=== PATIENT | male | born 1990 | race Caucasian/White ===

== ENCOUNTER 2020-11-28 15:25 | Emergency (ER) | payer BC, SELFPAY ==
[2020-11-28 16:06] VITALS: BP 118/80; PULSE 89; RESP 19; TEMP 36.8; O2SAT 98; BMI 24.3
--- NOTE | 2020-11-28 16:07 | XR_ITS ---
PROCEDURE: XR FOOT LT MIN 3V CLINICAL INDICATION: injury COMPARISON: No exams were available for comparison FINDINGS: AP lateral and oblique films show a nondisplaced complex fracture mid shaft proximal phalanx of the great toe. There is mild soft tissue swelling of the great toe. The tarsal bones metatarsals and remaining phalanges all appear intact. The plantar arch is normal. IMPRESSION: Fracture proximal phalanx great toe the fracture does not involve the articular cortex of the MP or IP joint Dictated by: Dr. Satish Love MD 11/29/2020 10:50 Dr. Satish Love MD in [place] 11/29/2020 10:50
[2020-11-28 16:11] VITALS: BP 118/80; PULSE 89; RESP 19; TEMP 36.8; O2SAT 98
--- NOTE | 2020-11-28 16:16 | HMH.EDUTC ---
[facility] [place] Disposition Clinical Impression: Foot fracture, left Qualifiers: Encounter type: initial encounter Fracture type: closed Qualified Code(s): S92.902A - Unspecified fracture of left foot, initial encounter for closed fracture Disposition: Home, Self-Care Condition on Discharge: Good Instructions: Foot Fracture, DI for Foot Fracture Additional Instructions: Rest the extremity, apply ice for 15 minutes as tolerated three or four times per day, Elevate the extremity as tolerated while you are resting. Take ibuprofen for pain. I sent in a prescription to your pharmacy. Follow up with Dr. Mcdowell (podiatry). I put in a referral but you need to call her office and schedule an appointment. Make sure you follow up with podiatry or orthopedics. If this does not heal correctly it will cause you problems for the rest of your life. Follow up with your regular doctor. GO TO THE ER FOR ANY WORSENING SYMPTOMS Prescriptions: Ibuprofen [Ibuprofen 600mg Tablet] 600 mg PO Q6HP PRN #30 tab PRN Reason: Mild Pain Transmission Status: Received by [facility] #[id number] Referrals: PCP,No [Primary Care Provider] - Cleo Cannon DPM [Staff Physician] - Time of Disposition: 17:43 Medical Decision Making - Medical Records Medical records reviewed: No: I reviewed the patient's medical records. - Rickie Inquiry Pt receiving controlled substance: No Vital Signs: 11/28/20 16:06 11/28/20 16:11 Temperature 98.2 F 98.2 F Temperature Source Oral Pulse Rate 89 Pulse Rate [Left] 89 Respiratory Rate 19 19 Blood Pressure 118/80 Blood Pressure [Right Arm] 118/80 Blood Pressure Mean [Right Arm] 92 Blood Pressure Source [Right Arm] Automatic Cuff Blood Pressure Position [Right Arm] Sitting 02 Sat by Pulse Oximetry 98 Oxygen Delivery Method Room Air Orders (Tests/Meds): ORDERS Category Date Time Status XR foot LT min 3V Stat Exams 11/28/20 16:07 Taken - Radiology Data #1 Image(s): Foot/Toes Image Reviewed: Yes I reviewed the patient's radiology image, Yes I have reviewed radiologist's interpretation fractured right great toe [facility] [place] HPI - General Stated complaint: ao 11/27/23 @2000 L foot injury Time Seen by Provider: 11/28/20 16:16 Mode of Arrival: Ambulatory Source of Information: Patient Limitations: No Limitations Description of Symptoms (Recalled from Triage Doc. by RN): Left foot swelling and pain HEENT Symptoms (Recalled from RN notes): No Resp Symptoms (Recalled from RN notes): No Skin Symptoms (Recalled from RN notes): No MS Symptoms (Recalled from RN notes): Yes Functional Status (Recalled from RN notes): wnl - History of Present Illness Provider Complaint: He states that he twisted his left foot back under himself yesterday. Since then he has had left foot pain and swelling. His foot is very swollen. - Related Data Previous Rx's Medication Instructions Recorded Ibuprofen [Ibuprofen 600mg 600 mg PO Q6HP PRN #30 tab 11/28/20 Tablet] Allergies Allergy/AdvReac Type Severity Reaction Status Date / Time No Known Allergies Allergy Verified 11/28/20 16:10 - Worker's Comp Is this a Worker's Comp case?: No Is this an [employer] Worker's Comp?: No Is this a [employer] Worker's Comp?: No [facility] History - Hepatitis A Screen Drug use history?: No High risk sexual behaviors?: No History of sexually transmitted infection?: No Currently employed?: No Childcare worker?: No Do you have indoor plumbing?: Yes Do you have electricity?: Yes Attestation statement:: This patient has been screened for Hepatitis A risk factors. I have reviewed the patient's past medical history: Yes - Social History Smoking Status: Never smoker Alcohol Intake: current Alcohol Intake Frequency:: holidays/special occasions only Occupational Status: other ROS Obtained: Yes All systems reviewed & no additional complaints - Constitutional Constitutional: Denies chills, Denies fever(s)
== END 2020-11-28 17:53 | disposition home or self-care (01) ==
PROVIDERS: Emergency Provider Nurse Practitioner Family
DX: S92.415A Nondisplaced fracture of proximal phalanx of left great toe, initial encounter for closed fracture (principal); X50.1XXA Overexertion from prolonged static or awkward postures, initial encounter; Y92.019 Unspecified place in single-family (private) house as the place of occurrence of the external cause
CPT/HCPCS: 29515; 73630; 99203